=== PATIENT | male | born 1950 | race Caucasian/White ===

== ENCOUNTER 2017-06-28 04:15 | Observation (INO) ==
[2017-06-28] MEDS ORDERED: Isovue-370 500 ML INFUS..BTL IV ONE (04:37)
--- NOTE | 2017-06-28 04:37 | Emergency Department Note ---
Disposition Clinical Impression: Small bowel obstruction Disposition: Still a Patient Condition: Fair Referrals: Sheri Morales CNP [Primary Care Provider] - Forms: ED Satisfaction Letter, Work/School Release Time of Disposition: 06:49 General Adult HPI - General Chief complaint: ED Abdominal Pain Stated complaint: abd pain Nursing Notes Reviewed: Yes Vital Signs Reviewed: Yes - History of Present Illness HPI Narrative: 67-year-old male presents to the emergency department with a one-day history of lower abdominal pain. Patient states that he has had a ventral hernia repair performed by Dr. morales. He states that he has had episodes of this in the past that were similar nature. Patient does report having one episode of vomiting today. He has had normal bowel movements over the last couple days. Pain Scale: 10 - Related Data Home Medications Medication Instructions Recorded Confirmed Dicloxacillin Sodium 50 tab PO 1-3XD 04/07/15 04/07/15 Ergocalciferol (VITAMIN D2) 50,000 units PO 2XW 04/07/15 04/07/15 [Vitamin D2 (50,000 UNIT)] Metformin HCl [Glumetza] 1,000 mg PO BID 04/07/15 04/07/15 Allergies Allergy/AdvReac Type Severity Reaction Status Date / Time steriods Allergy Diarrhea Uncoded 06/28/17 04:17 All systems ED: reviewed and negative except as stated. Review of Systems: As Per HPI Constitutional: Denies: fever Cardiovascular: Denies: chest pain Respiratory: Denies: cough Gastrointestinal: Reports: abdominal pain, nausea, vomiting. Denies: diarrhea, melena, hematochezia Genitourinary: Denies: urgency, dysuria Musculoskeletal: Denies: back pain, neck pain Integumentary: Denies: rash, abrasion Neurological: Denies: headache Endocrine: Denies: fatigue Past Medical History - Past Medical History Medical history: Reports: diabetes, hyperlipidemia, hypertension Surgical history: Reports: appendectomy, other (double hernia surgery) Psychiatric history: Reports: no psych history - Social History Smoking Status: Former smoker Smokeless Tobacco Status: No Alcohol use: Reports: none Drug use: Reports: none Physical Exam - General General appearance: alert, in no apparent distress - Head Head exam: atraumatic, normocephalic - Eye Eye exam: Absent: scleral icterus - ENT ENT exam: mucous membranes moist - Neck Neck exam: Present: full ROM, trachea midline. Absent: tenderness, meningismus - Chest Chest inspection: Present: symmetric chest wall rise - Respiratory Respiratory exam: Present: normal lung sounds bilaterally. Absent: respiratory distress - Cardiovascular Cardiovascular exam: Present: regular rate, normal rhythm, normal heart sounds. Absent: JVD - Abdominal Exam Abdominal exam: Present: other (Abdomen firm, diffuse lower abdominal tenderness to palpation that is moderate in nature. There is no rebound, there is no peritoneal signs.) - Extremities Exam Extremities exam: Present: tenderness - Back Exam Back exam: Present: normal inspection - Neurological Exam Neurological exam: Present: alert, oriented X3 - Psychiatric Psychiatric exam: Present: normal affect, normal mood - Skin Skin exam: Present: warm, dry, intact Course Vital Signs Temperature 98.0 F 06/28/17 04:17 Pulse Rate 85 06/28/17 04:17 Respiratory Rate 20 06/28/17 04:17 Blood Pressure 163/107 06/28/17 04:17 O2 Sat by Pulse Oximetry 95 06/28/17 04:17 Temperature 98.0 F 06/28/17 06:09 Pulse Rate 98 06/28/17 06:11 Respiratory Rate 16 06/28/17 06:11 Blood Pressure 158/87 06/28/17 06:11 O2 Sat by Pulse Oximetry 97 06/28/17 06:11 Oxygen Delivery Oxygen Delivery Room Air Medical Decision Making - MDM Narrative Medical decision making narrative: This is a 67-year-old male past medical history of ventral hernia repair who presents to the emergency department with lower abdominal pain as well as vomiting. This time, we will obtain a CT of the abdomen and pelvis with oral and IV contrast. We will also obtain urinalysis, CBC, CMP, lipase. We will provide a liter of normal saline. We will provide analgesia as well. Patient has mild leukocytosis of 14.7. He does not have any evidence of acute renal insufficiency. CT scan of the abdomen and pelvis reveals small bowel obstruction with a transition point along the posterior surface of the anterior abdominal wall mesh. I spoke with Dr. morales, his general surgeon and he recommended medical admission with surgery consult. Patient currently feeling a lot more comfortable after administration of pain medication. We are currently awaiting the hospitalist to call back for acceptance. Patient hemodynamically stable and not in any acute distress. He will be held nothing by mouth at this time. Abdomen/Pelvis CT 06/28/17 04:37 IMPRESSION: 1. Small bowel obstruction with the transition point along the posterior surface of the anterior abdominal wall mesh. 2. Nonobstructing right renal calculi. 3. Cholelithiasis without scan evidence for acute cholecystitis. 4. Diverticulosis without scan evidence for diverticulitis. D/ / Diego Cody MD / Diego Cody MD Interpreting Provider: Diego Cody MD Chest X-Ray 06/28/17 04:38 IMPRESSION: No acute disease. D/ / Diego Cody MD / Diego Cody MD Interpreting Provider: Diego Cody MD - Lab Data Result diagrams: 06/28/17 04:38 06/28/17 04:38 Lab Results 06/28/17 06/28/17 06/28/17 Range/Units 04:38 04:38 04:55 WBC 14.7 H (4.3-11.1) K/mcL RBC 5.39 (4.19-5.50) M/mcL Hgb 16.6 (12.9-16.9) g/dL Hct 47.4 (37.5-50.1) % MCV 87.9 (83.0-100.0) fL MCH 30.8 (28.0-33.3) pg MCHC 35.0 (31.6-35.5) g/dL RDW 13.2 (11.5-14.5) % Plt Count 212 (140-400) K/mcL MPV 11.7 (9.4-12.4) fL Immature Gran % 0.5 (0-4) % Seg Neutrophils % 83.8 % Lymphocytes % 9.9 % Monocytes % 5.2 % Eosinophils % 0.3 % Basophils % 0.3 % Neutrophils # 12.3 H (1.6-8.9) K/mcL Lymphocytes # 1.5 (0.6-4.6) K/mcL Monocytes # 0.8 (0.0-1.3) K/mcL Eosinophils # 0.0 (0.0-0.6) K/mcL Basophils # 0.1 (0.0-0.2) K/mcL Sodium 144 (136-145) mEq/L Potassium 4.3 (3.5-5.1) mEq/L Chloride 106 (98-107) mEq/L Carbon Dioxide 25 (23-29) mEq/L BUN 14 (8-23) mg/dL Creatinine 0.91 (0.70-1.30) mg/dL Est GFR ( Amer) > 60 (> 60) Est GFR (Non-Af Amer) > 60 (> 60) BUN/Creatinine Ratio 15 (6-26) Glucose 198 H (70-105) mg/dL Calculated Osmolality 304 H (280-300) Calcium 10.0 (8.6-10.3) mg/dL Total Bilirubin 0.8 (0.3-1.0) mg/dL AST 19 (13-39) Units/L ALT 27 (7-52) Units/L Alkaline Phosphatase 67 (34-104) Units/L Troponin I < 0.03 (< 0.04) ng/mL Serum Total Protein 6.9 (6.4-8.9) g/dL Albumin 4.4 (3.5-5.7) g/dL Globulin 2.5 (2.4-3.5) g/dL Albumin/Globulin Ratio 1.8 (1.1-2.2) Lipase 14 (11-82) Units/L Urine Color Yellow (Yellow) Urine Clarity Clear (Clear) Urine pH 6.5 (5.0-8.0) pH Units Ur Specific [place] 1.023 (1.010-1.025) Urine Protein 30 H (Neg-Trace) mg/dL Urine Glucose (UA) 100 H (Normal) mg/dL Urine Ketones Trace H (Negative) mg/dL Urine Blood Negative (Negative) Urine Nitrite Negative (Negative) Urine Bilirubin Negative (Negative) Urine Urobilinogen Normal (Normal) mg/dL Ur Leukocyte Esterase Negative (Negative) Urine Microscopic RBC 3-5 H (0-3) per hpf Urine Microscopic WBC 0-3 (0-3) per hpf Ur Squamous Epith Cells Moderate H (None-Few) per lpf Urine Bacteria None Seen (None-Few) per hpf Hyaline Casts None Seen (None-Few) per lpf Ur Culture Indicated? NO (NO) - Radiology Data Radiology results reviewed: Yes I reviewed the patient's radiology results. - EKG Data EKG #1 EKG attestation: Yes I reviewed and interpreted this EKG. EKG results narrative: June 5:01 Ventricular rate 74 bpm, DC interval 159 ms, QRS duration 97 ms, QT 345 ms, QTC 372 ms, left axis deviation. Sinus rhythm with a ventricular rate of 74 bpm. There is no evidence of any ischemic ST changes noted on this electrocardiogram. Attestation Statement - Attestation Attestation: I examined this patient and my medical decision-making was reviewed with the Resident Physician. I agree with the documented findings, disposition and treatment plan as described except to the extent set forth below. Abdominal pain with nausea and vomiting. We will obtain CT scan with IV and by mouth contrast to rule out obstructive pathology. Disposition pending results of advanced imaging and laboratory analyses. The patient will be signed out to
[2017-06-28] MEDS ORDERED: 0.9 % Sodium Chloride 1,000 ML IVC ONE (04:39)
[2017-06-28] MEDS ORDERED: Ondansetron 4 MG/2 ML VIAL IVP ONE (04:39)
[2017-06-28] MEDS ORDERED: *HR* FentaNYL (PF) 100 MCG/2 ML VIAL IVP ONE (04:39)
[2017-06-28] MEDS ORDERED: *HR* OxyCODONE/APAP 5/325 TABLET PO ONE (04:40)
[2017-06-28 05:01] LABS: Basophils # 0.1 K/mcL (0.0-0.2); Basophils % 0.3 %; Eosinophils % 0.3 %; Hematocrit 47.4 % (37.5-50.1); Hemoglobin 16.6 g/dL (12.9-16.9); Immature Granulocytes % 0.5 % (0-4); Lymphocytes # 1.5 K/mcL (0.6-4.6); Lymphocytes % 9.9 %; Mean Corpuscular Hemoglobin 30.8 pg (28.0-33.3); Mean Corpuscular Volume 87.9 fL (83.0-100.0); Mean Platelet Volume 11.7 fL (9.4-12.4); Monocytes # 0.8 K/mcL (0.0-1.3); Monocytes % 5.2 %; Neutrophils # 12.3 K/mcL (1.6-8.9); Platelet Count 212 K/mcL (140-400); Red Blood Count 5.39 M/mcL (4.19-5.50); Red Cell Distribution Width 13.2 % (11.5-14.5); Segmented Neutrophils % 83.8 %
[2017-06-28 05:06] LABS: Bilirubin,Urine Negative (Negative); Blood,Urine Negative (Negative); Clarity,Urine Clear (Clear); Color,Urine Yellow (Yellow); Glucose,Urine (UA) 100 mg/dL (Normal); Ketones,Urine Trace mg/dL (Negative); Leukocyte Esterase,Urine Negative (Negative); Nitrite,Urine Negative (Negative); PH,Urine 6.5 pH Units (5.0-8.0); Protein,Urine 30 mg/dL (Neg-Trace); Specific Gravity,Urine 1.023 (1.010-1.025); Urobilinogen,Urine Normal (Normal)
[2017-06-28 05:08] LABS: Bacteria,Urine None Seen per hpf (None-Few); Hyaline Casts,Urine None Seen per lpf (None-Few); Squamous Epithelial Cell,Urine Moderate per lpf (None-Few); WBC,Urine 0-3 per hpf (0-3)
[2017-06-28 05:30] LABS: Troponin I < 0.03 ng/mL (< 0.04)
[2017-06-28 05:31] LABS: Alanine Aminotransferase 27 Units/L (7-52); Albumin 4.4 g/dL (3.5-5.7); Albumin/Globulin Ratio 1.8 (1.1-2.2); Alkaline Phosphatase 67 Units/L (34-104); Aspartate Amino Transferase 19 Units/L (13-39); BUN/Creatinine Ratio 15 (6-26); Bilirubin,Total 0.8 mg/dL (0.3-1.0); Blood Urea Nitrogen 14 mg/dL (8-23); Carbon Dioxide 25 mEq/L (23-29); Chloride 106 mEq/L (98-107); Globulin 2.5 g/dL (2.4-3.5); Glucose 198 mg/dL (70-105); Lipase 14 Units/L (11-82); Osmolality,Calculated 304 (280-300); Potassium 4.3 mEq/L (3.5-5.1); Sodium 144 mEq/L (136-145); Total Protein 6.9 g/dL (6.4-8.9); eGFR For African Americans > 60 (> 60); eGFR For Non-African Americans > 60 (> 60)
--- NOTE | 2017-06-28 07:36 | Emergency Department Note ---
Disposition Clinical Impression: Small bowel obstruction Disposition: Still a Patient Condition: Fair Referrals: Sheri Morales CNP [Primary Care Provider] - Forms: ED Satisfaction Letter, Work/School Release General Adult HPI - General Chief complaint: ED Abdominal Pain Stated complaint: abd pain - History of Present Illness Pain Scale: 0 - Related Data Home Medications Medication Instructions Recorded Confirmed Aspirin/Acetaminophen/Caffeine 2 tab PO DAILY PRN 06/28/17 06/28/17 [Excedrin Migraine Caplet] Ibuprofen [Motrin Ib] 400 mg PO DAILY PRN 06/28/17 06/28/17 Linagliptin [Tradjenta] 5 mg PO DAILY 06/28/17 06/28/17 Lisinopril [Zestril] 10 mg PO DAILY 06/28/17 06/28/17 Metformin HCl [Glucophage] 1,000 mg PO BID 06/28/17 06/28/17 Pravastatin Sodium [Pravachol] 40 mg PO HS 06/28/17 06/28/17 Allergies Allergy/AdvReac Type Severity Reaction Status Date / Time steriods Allergy Diarrhea Uncoded 06/28/17 04:17 Constitutional: Denies: fever Cardiovascular: Denies: chest pain Respiratory: Denies: cough Gastrointestinal: Reports: abdominal pain, nausea, vomiting. Denies: diarrhea, melena, hematochezia Genitourinary: Denies: urgency, dysuria Musculoskeletal: Denies: back pain, neck pain Integumentary: Denies: rash, abrasion Neurological: Denies: headache Endocrine: Denies: fatigue Past Medical History - Past Medical History Medical history: Reports: diabetes, hyperlipidemia, hypertension Surgical history: Reports: appendectomy, other (double hernia surgery) Psychiatric history: Reports: no psych history - Social History Smoking Status: Former smoker Smokeless Tobacco Status: No Alcohol use: Reports: none Drug use: Reports: none Physical Exam - General General appearance: alert, in no apparent distress Course Vital Signs Temperature 98.0 F 06/28/17 04:17 Pulse Rate 85 06/28/17 04:17 Respiratory Rate 20 06/28/17 04:17 Blood Pressure 163/107 06/28/17 04:17 O2 Sat by Pulse Oximetry 95 06/28/17 04:17 Temperature 98.0 F 06/28/17 06:09 Pulse Rate 75 06/28/17 07:02 Respiratory Rate 16 06/28/17 07:02 Blood Pressure 141/98 06/28/17 07:02 O2 Sat by Pulse Oximetry 96 06/28/17 07:02 Oxygen Delivery Oxygen Delivery Room Air Medical Decision Making - Lab Data Result diagrams: 06/28/17 04:38 06/28/17 04:38 Lab Results 06/28/17 06/28/17 06/28/17 Range/Units 04:38 04:38 04:55 WBC 14.7 H (4.3-11.1) K/mcL RBC 5.39 (4.19-5.50) M/mcL Hgb 16.6 (12.9-16.9) g/dL Hct 47.4 (37.5-50.1) % MCV 87.9 (83.0-100.0) fL MCH 30.8 (28.0-33.3) pg MCHC 35.0 (31.6-35.5) g/dL RDW 13.2 (11.5-14.5) % Plt Count 212 (140-400) K/mcL MPV 11.7 (9.4-12.4) fL Immature Gran % 0.5 (0-4) % Seg Neutrophils % 83.8 % Lymphocytes % 9.9 % Monocytes % 5.2 % Eosinophils % 0.3 % Basophils % 0.3 % Neutrophils # 12.3 H (1.6-8.9) K/mcL Lymphocytes # 1.5 (0.6-4.6) K/mcL Monocytes # 0.8 (0.0-1.3) K/mcL Eosinophils # 0.0 (0.0-0.6) K/mcL Basophils # 0.1 (0.0-0.2) K/mcL Sodium 144 (136-145) mEq/L Potassium 4.3 (3.5-5.1) mEq/L Chloride 106 (98-107) mEq/L Carbon Dioxide 25 (23-29) mEq/L BUN 14 (8-23) mg/dL Creatinine 0.91 (0.70-1.30) mg/dL Est GFR ( Amer) > 60 (> 60) Est GFR (Non-Af Amer) > 60 (> 60) BUN/Creatinine Ratio 15 (6-26) Glucose 198 H (70-105) mg/dL Calculated Osmolality 304 H (280-300) Calcium 10.0 (8.6-10.3) mg/dL Total Bilirubin 0.8 (0.3-1.0) mg/dL AST 19 (13-39) Units/L ALT 27 (7-52) Units/L Alkaline Phosphatase 67 (34-104) Units/L Troponin I < 0.03 (< 0.04) ng/mL Serum Total Protein 6.9 (6.4-8.9) g/dL Albumin 4.4 (3.5-5.7) g/dL Globulin 2.5 (2.4-3.5) g/dL Albumin/Globulin Ratio 1.8 (1.1-2.2) Lipase 14 (11-82) Units/L Urine Color Yellow (Yellow) Urine Clarity Clear (Clear) Urine pH 6.5 (5.0-8.0) pH Units Ur Specific [place] 1.023 (1.010-1.025) Urine Protein 30 H (Neg-Trace) mg/dL Urine Glucose (UA) 100 H (Normal) mg/dL Urine Ketones Trace H (Negative) mg/dL Urine Blood Negative (Negative) Urine Nitrite Negative (Negative) Urine Bilirubin Negative (Negative) Urine Urobilinogen Normal (Normal) mg/dL Ur Leukocyte Esterase Negative (Negative) Urine Microscopic RBC 3-5 H (0-3) per hpf Urine Microscopic WBC 0-3 (0-3) per hpf Ur Squamous Epith Cells Moderate H (None-Few) per lpf Urine Bacteria None Seen (None-Few) per hpf Hyaline Casts None Seen (None-Few) per lpf Ur Culture Indicated? NO (NO) Attestation Statement - Attestation Attestation: Care assumed from Dr. Burrows at 7 AM pending planned admission to the medicine service. Patient presented with abdominal pain was identified to have a small bowel structuring. Surgical consultation was processed. The patient is sleeping at the time of my exam. The hospitalist service accepts admission
--- NOTE | 2017-06-28 08:55 | Electrocardiograph Report ---
[facility] Test Date: 2017-06-28 Pat Name: Ceferino Kylie Department: 103 Room: Gender: M Personnel And Payroll Technician: PENNIE : 1950 Requested By: Lewis Enriquez Order Number: [id number] Reading MD: Ceferino Montoya Measurements Intervals [place] Rate: 74 P: 34 MO: 159 QRS: 12 QRSD: 97 T: 72 QT: 345 QTc: 372 Interpretive Statements SINUS RHYTHM Electronically Signed On 06-28-2017 8:54:22 EDT by Ceferino Montoya
[2017-06-28] MEDS ORDERED: Naloxone 0.4 MG/ML INJ IVP PRN (10:42)
[2017-06-28] MEDS ORDERED: Ondansetron 4 MG/2 ML VIAL IVP PRN (10:44)
[2017-06-28] MEDS ORDERED: 0.9 % Sodium Chloride 1,000 ML IVC SCH ×2 (10:45→11:30)
[2017-06-28] MEDS ORDERED: *HR* Dextrose 50 % in Water (Syg) 50 ML SYRINGE IVP PRN (10:46)
[2017-06-28] MEDS ORDERED: Dextrose Gel 15 GM/37.5 ML TUBE PO PRN ×2 (10:46)
[2017-06-28] MEDS ORDERED: D5% in Water 1,000 ML IVC PRN (10:46)
--- NOTE | 2017-06-28 10:49 | Internal Med History&Physical ---
Date of Encounter: 06/28/17 Time of Encounter: 10:47 Internal Medicine - H&P: HPI Admitted From: Home Plans for Post Hospital Care: Home History of present illness: Mr. Espinal is a 67 year old male with history of diabetes mellitus, hypertension, hyperlipidemia, ventral hernia repair performed by Dr. Maravilla almost 5 years ago presented to ER with complaint of sudden onset of abdominal pain around 8 PM last night associated with nausea and also had one time vomiting. In ER CT abdomen suggestive of a small bowel obstruction. ER physician consulted surgeon Dr. Maravilla. ER physician also called on-call hospitalists for the admission. Patient denies fever, chills, cough, headache, dizziness, chest pain, shortness of breath, diarrhea, urinary complaint. He had decreased flatus but past bowel movement in the midnight 1 and also has nausea but no vomiting after coming to ER. Past Med Surg Social Fam HX - Past Medical History Medical history: diabetes, hyperlipidemia, hypertension Psychiatric history: no psych history - Past Surgical History Surgical History: appendectomy, other (double hernia surgery) - Social History Smoking Status: Former smoker Smokeless Tobacco Status: No Alcohol use: none Drug use: none Internal Medicine - H&P: Meds Aspirin/Acetaminophen/Caffeine [Excedrin Migraine Caplet] 2 tab PO DAILY PRN [History] Ibuprofen [Motrin Ib] 400 mg PO DAILY PRN 06/28/17 [History] Linagliptin [Tradjenta] 5 mg PO DAILY 06/28/17 [History] Lisinopril [Zestril] 10 mg PO DAILY 06/28/17 [History] Metformin HCl [Glucophage] 1,000 mg PO BID 06/28/17 [History] Pravastatin Sodium [Pravachol] 40 mg PO HS 06/28/17 [History] 3 Allergy/AdvReac Type Severity Reaction Status Date / Time steriods Allergy Diarrhea Uncoded 06/28/17 04:17 All Systems PM: as documented above in the HPI. - Constitutional Vitals: Temp Pulse Resp BP Pulse Ox 98.0 F 69 16 141/98 95 06/28/17 06:09 06/28/17 07:45 06/28/17 07:45 06/28/17 07:02 06/28/17 07:45 Exam: General appearance: No acute distress, A&O X 3. at bedside Head exam: Atraumatic Eye exam: EOMI, PERRLA ENT exam: Moist oral mucosa Neck nontender, supple Respiratory exam: Clear to auscultation bilaterally Cardiovascular exam: Regular rate and rhythm, no systolic murmur Abdominal exam: Soft, tender in lower abdomen, nondistended, positive bowel sounds, no rebound tenderness, no rigidity Extremities exam: No calf tenderness, no pedal edema Present: Skin-no rash, warm, dry, intact Neurological exam: Alert, awake, oriented 3, CN II-XII intact, no focal deficits. No facial droop. Normal speech. Normal gait. Internal Med - H&P Results - Labs CBC & Chem 7: 06/28/17 04:38 06/28/17 04:38 Labs: Short CBC 06/28/17 Range/Units 04:38 WBC 14.7 H (4.3-11.1) K/mcL Hgb 16.6 (12.9-16.9) g/dL Hct 47.4 (37.5-50.1) % Plt Count 212 (140-400) K/mcL Neutrophils # 12.3 H (1.6-8.9) K/mcL BMP 06/28/17 04:38 Sodium 144 Potassium 4.3 Chloride 106 Carbon Dioxide 25 BUN 14 Creatinine 0.91 Glucose 198 H Calcium 10.0 Cardiac Enzymes 06/28/17 Range/Units 04:38 Troponin I < 0.03 (< 0.04) ng/mL Liver Function 06/28/17 Range/Units 04:38 Total Bilirubin 0.8 (0.3-1.0) mg/dL AST 19 (13-39) Units/L ALT 27 (7-52) Units/L Alkaline Phosphatase 67 (34-104) Units/L Albumin 4.4 (3.5-5.7) g/dL Urine 06/28/17 Range/Units 04:55 Urine Color Yellow (Yellow) Urine Clarity Clear (Clear) Urine pH 6.5 (5.0-8.0) pH Units Ur Specific [place] 1.023 (1.010-1.025) Urine Protein 30 H (Neg-Trace) mg/dL Urine Glucose (UA) 100 H (Normal) mg/dL - Impressions ITS Impressions Abdomen/Pelvis CT 06/28/17 04:37 IMPRESSION: 1. Small bowel obstruction with the transition point along the posterior surface of the anterior abdominal wall mesh. 2. Nonobstructing right renal calculi. 3. Cholelithiasis without scan evidence for acute cholecystitis. 4. Diverticulosis without scan evidence for diverticulitis. D/ / Diego Cody MD / Diego Cody MD Interpreting Provider: Diego Cody MD Chest X-Ray 06/28/17 04:38 IMPRESSION: No acute disease. D/ / Diego Cody MD / Diego Cody MD Interpreting Provider: Diego Cody MD - Assessment and plan (1) Small bowel obstruction, partial Current Visit: Yes Status: Acute Assessment and plan: History of ventral hernia repair in the past. History of a small bowel obstruction in the past as well. CT abdomen done with suggestive above finding. Continue supportive treatment keeping nothing by mouth, IV fluid, pain management, antiemetic. General surgeon was already consulted by ER physician (2) Leukocytosis, unspecified Current Visit: Yes Status: Acute Assessment and plan: Patient does not appear in sepsis. Abdomen pain is also better. No other source of infection. Could be reactive response. Will monitor the patient. Will consider antibiotic if needed. Qualifiers: Leukocytosis type: unspecified Qualified Code(s): D72.829 - Elevated white blood cell count, unspecified (3) Diabetes mellitus Current Visit: Yes Status: Chronic Assessment and plan: Accu-Chek, SSI coverage. Hold OHA Qualifiers: Diabetes mellitus type: type 2 Diabetes mellitus half-way insulin use: without half-way use Diabetes mellitus complication status: without complication Qualified Code(s): E11.9 - Type 2 diabetes mellitus without complications (4) Hypertension Current Visit: Yes Status: Chronic Assessment and plan: Close monitoring. Patient is nothing by mouth therefore lisinopril on hold. Hydralazine as needed. Qualifiers: Hypertension type: essential hypertension Qualified Code(s): I10 - Essential (primary) hypertension (5) DVT prophylaxis Current Visit: Yes Status: Acute Assessment and plan: SCDs - Time Spent With Patient Total time spent is greater than 50% in coordination of care (as documented) at patient's floor/unit and/or counseling patient: 25 - 35 minutes
[2017-06-28 11:29] VITALS: BP 153/94
[2017-06-28] MEDS ORDERED: Insulin LISPRO 300 UNITS/3 ML VIAL SQ SCH (12:00)
--- NOTE | 2017-06-28 13:49 | General Surgery Consult Note ---
Date of Encounter: 06/28/17 Time of Encounter: 13:00 History of Present Illness Consult date: 06/28/17 Reason for consult: abdominal pain Requesting physician: Lewis Enriquez History of present illness: 67-year-old male referred to surgical services for further evaluation and possible treatment new-onset abdominal pain, nausea, and a single episode of emesis. Patient indicates symptoms began approximately 10 AM yesterday morning and progressed in severity. He describes predominantly upper abdominal pain. CT abdomen/pelvis demonstrated bibasilar atelectasis; cholelithiasis without wall thickening or pericholecystic fluid; distended stomach and mild dilatation of the central small bowel. A transition point at along the posterior surface of a mesh hernia repair of the anterior abdominal wall was also described. Diverticulosis throughout the colon without evidence of diverticulitis. Slightly dilated central loops of small bowel prompted some concern for early small bowel obstruction. Past medical history: Diabetes mellitus, hypertension, hyperlipidemia, truncal obesity Surgical history: Appendectomy, "double" hernia surgery; periumbilical hernia repair with mesh approximately 5 years ago Allergies: Steroids which are described to cause diarrhea Medications: Aspirin/acetaminophen/caffeine (Excedrin migraine caplet) 2 tabs by mouth as needed Ibuprofen 400 mg by mouth as needed for pain Linagliptin 5 mg by mouth daily Lisinopril 20 mg by mouth daily Metformin 1000 mg by mouth twice a day Pravastatin 40 mg by mouth daily at bedtime Social history: Former smoker; he does not consume alcohol or use illicit drugs. He is and lives at home with his spouse Physical examination: The patient was resting comfortably in his hospital bed. He was in no acute distress. The patient was afebrile, 98.5; pulse 70, respirations 16-19, blood pressure 153/94. SPO2 on room air 99% He is 1.8 m tall, 106.594 kg, BMI 32.8 Skin: Warm, without obvious jaundice Lungs: Clear, no obvious abdominal pain and deep inspiration Cardiac: Regular rate, no appreciable murmurs Abdomen: Protuberant but nontender. Active bowel sounds. I did not elicit any upper or lower abdominal pain. The patient did describe some crampy abdominal pain in the supraumbilical area but there were no discernible masses. CT abdomen/pelvis was reviewed with [facility] - the findings are summarized above Labs: White count 14.7; hemoglobin 16.6, hematocrit 47.4. Platelet count 212, 000. Neutrophils 12.3% Electrolytes, BUN, creatinine within normal limits; blood sugar 198 Impression: 67-year-old male referred for surgical evaluation of new onset abdominal pain , nausea and single episode of emesis. CT findings include cholelithiasis without wall thickening or pericholecystic fluid. This may be the patient's etiology for recurring upper abdominal "pressure". CT also notable for mild dilatation central small bowel. Adhesions in the area of a previous mesh repair of the anterior abdominal wall (periumbilical) potentially contributing to the patient's symptoms and radiologic findings. No clear-cut obstruction was identified. Mild dehydration - elevated H&H (hemoconcentration) At the time of my examination, the patient was feeling much improved. His abdominal pain had diminished considerably. There was no further N/V The clinical and radiologic findings were discussed in detail with the patient. The patient's was at bedside as well. Treatment options include overnight observation in the hospital versus discharge home, clear liquids for 24 hours and follow-up in my office tomorrow. The patient indicates his desire to be discharged home. His was in agreement. The patient is aware that his symptoms may continue to resolve or recurrent become much worse. If discharged home that would necessitate a return to the hospital. The patient is expressed understanding and continued to express their desire to be discharged home. This was discussed with Maribell Soliman Hospitalist. It was deemed reasonable for patient to be discharged home with outpatient follow up. Instructions: Clear liquids for the next 24 hours Patient to continue his routine home meds without interruption Patient contact office in a.m. to make follow-up appointment in the afternoon. Past Med Surg Social Fam HX - Past Medical History Medical history: diabetes, hyperlipidemia, hypertension Psychiatric history: no psych history - Past Surgical History Surgical History: appendectomy, herniorrhaphy, tonsilectomy, other - Social History Smoking Status: Former smoker Smokeless Tobacco Status: No Alcohol use: none Drug use: none - Family History Father Hx Family Cardiac Disorders: Yes Grandfather Hx Family Cardiac Disorders: Yes Brother Hx Family Neuromuscular Disorders: Yes (CVA) Medications and Allergies Aspirin/Acetaminophen/Caffeine [Excedrin Migraine Caplet] 2 tab PO DAILY PRN [History] Ibuprofen [Motrin Ib] 400 mg PO DAILY PRN 06/28/17 [History] Linagliptin [Tradjenta] 5 mg PO DAILY 06/28/17 [History] Lisinopril [Zestril] 10 mg PO DAILY 06/28/17 [History] Metformin HCl [Glucophage] 1,000 mg PO BID 06/28/17 [History] Pravastatin Sodium [Pravachol] 40 mg PO HS 06/28/17 [History] 3 Allergy/AdvReac Type Severity Reaction Status Date / Time steriods Allergy Diarrhea Uncoded 06/28/17 04:17 Review of Systems All systems PM: The remainder of the systems were reviewed and are negative General Surgery Exam Initial Vital Signs Temp Pulse Resp BP Pulse Ox 98.0 F 85 20 163/107 95 06/28/17 04:17 06/28/17 04:17 06/28/17 04:17 06/28/17 04:17 06/28/17 04:17 Exam Initial Vital Signs Temp Pulse Resp BP Pulse Ox 98.0 F 85 20 163/107 95 06/28/17 04:17 06/28/17 04:17 06/28/17 04:17 06/28/17 04:17 06/28/17 04:17 Results - Labs 06/28/17 04:38 06/28/17 04:38 Abnormal lab results WBC 14.7 K/mcL (4.3-11.1) H 06/28/17 04:38 Neutrophils # 12.3 K/mcL (1.6-8.9) H 06/28/17 04:38 Glucose 198 mg/dL (70-105) H 06/28/17 04:38 POC Glucose 128 mg/dL (70-99) H 06/28/17 11:16 Calculated Osmolality 304 (280-300) H 06/28/17 04:38 Urine Protein 30 mg/dL (Neg-Trace) H 06/28/17 04:55 Urine Glucose (UA) 100 mg/dL (Normal) H 06/28/17 04:55 Urine Ketones Trace mg/dL (Negative) H 06/28/17 04:55 Urine Microscopic RBC 3-5 per hpf (0-3) H 06/28/17 04:55 Ur Squamous Epith Cells Moderate per lpf (None-Few) H 06/28/17 04:55 All other labs normal. Consult Discharge Plan - Plan Referrals: Sheri Morales, HALLIE [Primary Care Provider] -
== END 2017-06-28 14:13 | disposition home or self-care (01) ==
LOC: EMEROO 04:15 → 2SOUTHHOLD 04:15
PROVIDERS: ADMIT General Practice; ATTEND General Practice

== ENCOUNTER 2017-07-19 06:58 | Inpatient (IN) ==
--- NOTE | 2017-07-19 07:45 | History & Physical Report ---
Date of Encounter: 07/19/17 Time of Encounter: 07:44 24 Hour HP Update - Instructions Instructions: If the History and Physical is less than 30 days old and was completed prior to A.M. admission and or procedure and has NOT been updated on calendar day of procedure please complete this update prior to performing procedure. - Update Patient reports changes in Medical Condition: No Changes in examination, assessment, or condition: No Changes in Medication: No Preop tests/diagnostics Reviewed: Yes Surgery Remains Indicated: Yes Consent for Planned Operative Procedure(s) Verified: Yes - Pre-Operative Checklist Preoperative Checklist Indicated: Yes Prophylactic Antibiotic Ordered: Yes Home Medications Include Beta Simone: No Beta Simone Taken Today (Day of Surgery): No Beta Simone Taken Yesterday (Day Prior to Surgery): No Is VTE Prophylaxis Indicated?: Yes
[2017-07-19] MEDS ORDERED: Ringers Solution, Lactated 1,000 ML IVC SCH ×2 (08:00→13:18)
[2017-07-19] MEDS ORDERED: CeFAZolin Syr 2,000MG/20 ML 2,000 MG/20 ML SYRINGE IVPB ONE (08:01)
[2017-07-19] MEDS ORDERED: Ondansetron 4 MG/2 ML VIAL ONE (08:08)
[2017-07-19] MEDS ORDERED: *HR* Rocuronium Bromide 50 MG/5 ML VIAL ONE (08:08)
[2017-07-19] MEDS ORDERED: Dexamethasone 4 MG/ML VIAL ONE (08:08)
[2017-07-19] MEDS ORDERED: Lidocaine -MPF 2% 2 ML VIAL ONE (08:08)
--- NOTE | 2017-07-19 08:08 | Anesthesia Evaluation PreOp ---
Date of Encounter: 07/19/17 Time of Encounter: 08:06 - Past History Planned Operation: Lap cholecystectomy Cardiac History: HTN, Hyperlipidemia POWDERMAN History: Denies Any Significant HX Other Medical History: Renal (kidney stones), Diabetes Type II Anesthesia History: No Prior Anesthetic Complications, Past Anesthesia ( appendectomy, hernia repair with mesh, tonsillectomy) Alcohol Use: none Drug use: none Medications and Allergies Linagliptin [Tradjenta] 5 mg PO DAILY 06/28/17 [History] Lisinopril [Zestril] 10 mg PO DAILY 06/28/17 [History] Metformin HCl [Glucophage] 1,000 mg PO BID 06/28/17 [History] Pravastatin Sodium [Pravachol] 40 mg PO HS 06/28/17 [History] 3 Allergy/AdvReac Type Severity Reaction Status Date / Time steriods AdvReac Diarrhea Uncoded 07/19/17 08:01 - Meds/Allergy Pre-op Review Medications Reviewed: Yes Allergies Reviewed: Yes Beta Blockers on Current Med List: No Anesthesia Results - Labs Laboratory Tests 06/28/17 06/28/17 06/28/17 04:38 04:38 11:16 WBC 14.7 H Hgb 16.6 Hct 47.4 Plt Count 212 Sodium 144 Potassium 4.3 Chloride 106 Carbon Dioxide 25 BUN 14 Creatinine 0.91 Glucose 198 H POC Glucose 128 H - Imaging EKG: report reviewed (SINUS RHYTHM Electronically Signed On 06-28-2017 8:54:22 EDT by Ceferino Montoya) Anesthesia Exam Blood glucose: 122 - HEENT Pupil (Motor): Pupils equal, EOMI Mallampati: III Teeth: Edentulous Oral Opening: Greater than 3 - POWDERMAN LOC: Oriented POWDERMAN Motor: Normal RUE, Normal LUE, Normal RLE, Normal LLE, Normal Face POWDERMAN Sensory: Normal: RUE, LUE, RLE, LLE, Face - Cardiac Rhythm: Regular - Pulmonary Breath Sounds: bilateral Clear Respiratory Effort: Symmetrical Anesthesia Assess/Plan ASA Score: 2 Modified [place] Scale for Level of Consciousness: Cooperative, oriented, and tranquil Anesthetic Plan: General Monitoring Plan: Standard Monitors Recovery Plan: PACU
[2017-07-19] MEDS ORDERED: *HR* Propofol 200 MG/20 ML VIAL IVP ONE (08:10)
[2017-07-19] MEDS ORDERED: *HR* FentaNYL (PF) 100 MCG/2 ML VIAL ONE (08:10)
[2017-07-19] MEDS ORDERED: *HR* Midazolam HCl 2 MG/2 ML VIAL ONE (08:10)
[2017-07-19] MEDS ORDERED: Acetaminophen IV 1,000 MG/100 ML INFUS..BTL ONE (08:13)
[2017-07-19] MEDS ORDERED: *HR* Succinylcholine 200 MG/10 ML VIAL IVP ONE (08:14)
[2017-07-19] MEDS ORDERED: Lidocaine -MPF 4% 5 ML AMPUL ONE (08:14)
[2017-07-19] MEDS ORDERED: *HR* Morphine 2 MG/ML SYRINGE IVP PRN (08:17)
[2017-07-19] MEDS ORDERED: *HR* Labetalol 20 MG/4 ML SYRINGE IVP PRN (08:17)
[2017-07-19] MEDS ORDERED: Ondansetron 4 MG/2 ML VIAL IVP ONE (08:17)
[2017-07-19] MEDS ORDERED: Dexamethasone 4 MG/ML VIAL IVP ONE (08:17)
[2017-07-19] MEDS ORDERED: *HR* Promethazine 25 MG/ML VIAL IVP PRN (08:17)
[2017-07-19] MEDS ORDERED: Bupivacaine/EPI 1:200k 0.25%PF 30 ML VIAL ONE (09:05)
[2017-07-19] MEDS ORDERED: Isovue-300 50 ML VIAL IVP ONE (09:05)
[2017-07-19] MEDS ORDERED: Ketorolac 30 MG/ML VIAL ONE (09:07)
[2017-07-19] MEDS ORDERED: Neostigmine Methylsulfate 3 MG/3 ML SYRINGE ONE (09:07)
[2017-07-19] MEDS ORDERED: *HR* Morphine 10 MG/ML VIAL ONE (11:23)
--- NOTE | 2017-07-19 11:42 | Operative Note ---
Date of procedure: 07/19/17 Pre-op diagnosis: cholelithiasis, biliary colic Post-op diagnosis: other (Cholelithiasis, biliary colic; small bowel adherent to mesh prosthesis) Procedure: Laparoscopic cholecystectomy, attempted intraoperative cholangiogram; lysis of adhesions; open exploratory celiotomy with small bowel resection Complications: Enterotomy necessitating small bowel resection Anesthesia: GETA Local Anesthetics: 0.25% Sensorcaine HCL with Epinephrine 1:200,000 SubQ (cc) ( 30 mL) Surgeon: Davion Betancur Was there an assistant store manager trainee present: No Estimated blood loss (cc): 25 IV fluids (cc): 1,400 Specimen: gallbladder, portion small bowel Condition: stable Disposition: PACU Procedure in Detail: The patient was brought to the operating room where he was placed supine on the procedure table. The patient was appropriately identified as to person and procedure. The accuracy of this information was confirmed by the patient and procedure team. The patient was intubated and anesthetized under the supervision of Dr. Tiffani Tian. The abdomen was prepped and draped in usual sterile fashion. Due to previous periumbilical hernia repair, laparoscopic approach was initiated right upper quadrant midclavicular line, caudal to the costal margin. Several milliliters of 0.25% bupivacaine with 1-200,000 epinephrine was infiltrated into this site. A small transverse incision was made. The abdominal wall was grasped and elevated. A 5 mm Xcel port was established. The rigid laparoscope was placed within the obturator to visualize passage through the layers to the anterior abdominal wall. When the abdominal cavity was accessed, the obturator was replaced by the rigid laparoscope, the abdomen was insufflated with gaseous carbon dioxide. There was no obvious visible injury from establishing the port. In the area of the umbilicus, there were several loops of small bowel adherent to the anterior abdominal wall and the mesh prosthesis used to repair a previous periumbilical hernia. The patient had been admitted once previously for small bowel obstruction and I suspect it was these adherent loops that caused those symptoms. Under direct visualization a supraumbilical port was established. Once this was accomplished, the rigid laparoscope shifted to dislocation of visualize placement of the remaining ports. Each of the port sites was infiltrated with the bupivacaine with epinephrine solution. There were adhesions of omentum to the liver that required dissection using Ethicon harmonic hira to facilitate exposure of the gallbladder. The gallbladder was tensely distended. It was necessary to aspirate approximately 60 mL of a clear dee bile to allow the gallbladder to be grasped and retracted. The hepatoduodenal ligament was dissected. The cystic duct was identified, skeletonized, and clipped near the infundibulum of the gallbladder. Via a separate percutaneous insertion site, a Taut cholangiogram catheter was introduced. The cystic duct was incised but was too small to allow insertion of the cholangiogram catheter. Efforts to obtain an intraoperative cholangiogram were abandoned. The cystic duct was doubly clipped and divided. The cystic artery was identified, clipped and divided. (2 clips proximally, 1 clip distal). The gallbladder was dissected from the liver bed using the Ethicon harmonic hira. Once from the liver bed, the gallbladder was placed in an endoscopic pouch and extracted through the supraumbilical port. The gallbladder was retrieved and sent to pathology. Using the laparoscopic ports, the adherent small bowel was dissected from the mesh prosthesis. The adhesions were very dense. During the mobilization of these loops of bowel, it became apparent that an enterotomy had occurred. At this point I abandoned the laparoscopic procedure. Several milliliters of 0.25% bupivacaine with 1-200,000 units epinephrine was infiltrated in the midline. The midline incision was extended from the umbilicus through the supraumbilical port. The fascia was divided in the midline. Bleeding points were controlled with electrocautery. The abdomen was entered atraumatically. The mesh prosthesis used to repair the periumbilical hernia was dissected from the surrounding anterior abdominal wall and adherent intra-abdominal contents and removed. The perforated small bowel was exteriorized. The remainder of the bowel was intact. A side to side, functional end and stapled anastomosis was created with an Ethicon 75 mm linear stapler. The open ends of the small bowel were transected using an Ethicon TX 60 millimeters stapler with the open ends transected using Lipscomb scissors. The anastomosis appeared to be intact. bBeeding from the staple line was controlled with interrupted 3-0 silk. The bowel was allowed to return to its usual anatomic location. The fascial defect was closed with interrupted [id number] 0 Vicryl. The skin edges were approximated with opal. The port sites along the right costal margin were closed with subcuticular 4-0 Vicryl. A dry sterile dressing was applied to the midline incision. The patient was taken to recovery in stable condition. Needle, sponge, and instrument counts were correct at the close of the case. Specimens submitted to pathology included the gallbladder, and the resected segment of small bowel. Total volume of 0.25% bupivacaine with 1-200,000 units epinephrine, 30 mL.
--- NOTE | 2017-07-19 12:20 | Anesthesia Evaluation Post Op ---
Date of Encounter: 07/19/17 Time of Encounter: 12:16 - Vital Signs Vital Signs: vss, recently tx with hydralazine. - Lungs Lungs: Clear Ascult./Percussion - Airway Airway: Non-obstructed - Mental Status Mental Status: Asleep with brisk response to light stimulation - Pain Pain Scale used: Luiza (Faces) - Nausea Vomiting Nausea Vomiting: Not Present - Hydration Hydration: Ice chips - Discharge PostOp Status: Transfer Patient to floor
[2017-07-19] MEDS ORDERED: Dextrose Gel 15 GM/37.5 ML TUBE PO PRN (13:18)
[2017-07-19] MEDS ORDERED: *HR* Dextrose 50 % in Water (Syg) 50 ML SYRINGE IVP PRN (13:18)
[2017-07-19] MEDS ORDERED: Ringers Solution, Lactated 500 ML IVC ONE (13:18)
[2017-07-19] MEDS ORDERED: D5% in Water 1,000 ML IVC PRN (13:18)
[2017-07-19] MEDS: *HR* OxyCODONE/APAP 5/325 TABLET PO PRN ×2 (13:32→18:14)
[2017-07-19] MEDS: Insulin LISPRO 300 UNITS/3 ML VIAL SQ SCH ×2 (18:10→20:59)
[2017-07-19] MEDS: *HR* Metformin 500 MG TABLET PO SCH (18:14)
[2017-07-19] MEDS: Acetaminophen 325 MG TABLET PO PRN (20:58)
[2017-07-20] MEDS: *HR* OxyCODONE/APAP 5/325 TABLET PO PRN ×4 (00:15→20:53)
[2017-07-20] MEDS: Insulin LISPRO 300 UNITS/3 ML VIAL SQ SCH ×2 (00:16→04:10)
[2017-07-20] MEDS ORDERED: Topiramate 25 MG TABLET PO ONE (02:03)
[2017-07-20 06:42] LABS: Basophils % 0.2 %; Eosinophils % 0.1 %; Hematocrit 43.1 % (37.5-50.1); Hemoglobin 14.6 g/dL (12.9-16.9); Immature Granulocytes % 0.3 % (0-4); Lymphocytes % 15.7 %; Mean Corpuscular HGB Conc 33.9 g/dL (31.6-35.5); Mean Corpuscular Hemoglobin 29.7 pg (28.0-33.3); Mean Corpuscular Volume 87.6 fL (83.0-100.0); Mean Platelet Volume 11.6 fL (9.4-12.4); Neutrophils # 9.4 K/mcL (1.6-8.9); Platelet Count 191 K/mcL (140-400); Red Blood Count 4.92 M/mcL (4.19-5.50); Red Cell Distribution Width 12.8 % (11.5-14.5); Segmented Neutrophils % 75.7 %
[2017-07-20 07:04] LABS: BUN/Creatinine Ratio 18 (6-26); Blood Urea Nitrogen 16 mg/dL (8-23); Calcium 8.9 mg/dL (8.6-10.3); Carbon Dioxide 24 mEq/L (23-29); Chloride 103 mEq/L (98-107); Glucose 172 mg/dL (70-105); Osmolality,Calculated 289 (280-300); Potassium 4.1 mEq/L (3.5-5.1); Sodium 137 mEq/L (136-145); eGFR For African Americans > 60 (> 60); eGFR For Non-African Americans > 60 (> 60)
[2017-07-20] MEDS: *HR* Metformin 500 MG TABLET PO SCH ×2 (08:35→17:52)
[2017-07-20] MEDS: Lisinopril 20 MG TABLET PO SCH (08:35)
[2017-07-20] MEDS ORDERED: (Linagliptin [Tradjenta] 5 MG) PO SCH (09:00)
[2017-07-20] MEDS ORDERED: Ringers Solution, Lactated 1,000 ML IVC SCH (15:00)
--- NOTE | 2017-07-20 18:53 | General Surgery Progress Note ---
Date of Encounter: 07/20/17 Time of Encounter: 13:15 Subjective Patient reports: feels better, still having pain Narrative: General Surgery - POD #1 - this is a delayed dictation Patient was resting comfortably; prior complaints of right shoulder pain and right upper quadrant abdominal pain have diminished. The patient's primary complaint through the night was that of a headache which was only partially controlled with Tylenol, Percocet, and Topamax. The patient has remained afebrile, 98.3, pulse 69, respirations 16, blood pressure 150/75. SPO2 on 4 L nasal cannula 97%, previously on 2 L per nasal cannula 94-98%. Lungs: Diminished basilar breath sounds on the right; left and anterior lungs dudley clear. No obvious abdominal pain on deep inspiration Cardiac: Regular rate, no appreciable murmurs Abdomen: Soft with mac-incisional tenderness as expected. The port sites are intact. The suprapubic midline incision is also intact. Minimal sanguinous drainage on the dressing. The dressing was removed. Bowel sounds were active and the patient has passed flatus. Laboratories: White count 12.4, hemoglobin 14.6, hematocrit 43.1; neutrophils 9.4. The leukocytosis and neutrophilia likely response to surgery. Electrolytes, BUN, creatinine have remained within normal limits. Operative pathology pending Impression: Postoperative day 1, status post laparoscopic cholecystectomy with lysis of adhesions requiring open enterotomy to repair perforated small bowel. The patient appears to be doing well. Acceptable postoperative status Plan: Allow clear liquids and if tolerated advance diet in a.m. Repeat CBC in a.m. Objective Vital Signs - Last 8 Hours Temp Pulse Resp BP Pulse Ox 07/20/17 15:05 99.1 F 62 16 161/81 90 Intake and Output 07/20/17 07/20/17 07/20/17 07:59 15:59 23:59 Intake Total 30 / 30 Output Total 1200 / 1200 1400 / 1400 Balance -1170 / -1170 -1400 / -1400 Intake: Oral 30 / 30 Output: Stool 0 / 0 Other 0 / 0 Catheter 1200 / 1200 1400 / 1400 Other: Weight 107.3 kg Blood Glucose* 154 117 124 Patient Weight 07/20/17 23:59 Weight 107.3 kg - Labs 07/20/17 06:10 07/20/17 06:10 Diabetes panel 07/20/17 Range/Units 06:10 Sodium 137 (136-145) mEq/L Potassium 4.1 (3.5-5.1) mEq/L Chloride 103 (98-107) mEq/L Carbon Dioxide 24 (23-29) mEq/L BUN 16 (8-23) mg/dL Creatinine 0.87 (0.70-1.30) mg/dL Glucose 172 H (70-105) mg/dL Calcium 8.9 (8.6-10.3) mg/dL Calcium panel 07/20/17 Range/Units 06:10 Calcium 8.9 (8.6-10.3) mg/dL Pituitary panel 07/20/17 Range/Units 06:10 Sodium 137 (136-145) mEq/L Potassium 4.1 (3.5-5.1) mEq/L Chloride 103 (98-107) mEq/L Carbon Dioxide 24 (23-29) mEq/L BUN 16 (8-23) mg/dL Creatinine 0.87 (0.70-1.30) mg/dL Glucose 172 H (70-105) mg/dL Calcium 8.9 (8.6-10.3) mg/dL Adrenal panel 07/20/17 Range/Units 06:10 Sodium 137 (136-145) mEq/L Potassium 4.1 (3.5-5.1) mEq/L Chloride 103 (98-107) mEq/L Carbon Dioxide 24 (23-29) mEq/L BUN 16 (8-23) mg/dL Creatinine 0.87 (0.70-1.30) mg/dL Glucose 172 H (70-105) mg/dL Calcium 8.9 (8.6-10.3) mg/dL - VTE Documentation of Mechanical Device: Intermittent pneumatic compression device Consult Discharge Plan - Plan Referrals: Davion Betancur MD [Non-Partnered Physician] -
[2017-07-20] MEDS: Acetaminophen 325 MG TABLET PO PRN (23:12)
[2017-07-21] MEDS: *HR* OxyCODONE/APAP 5/325 TABLET PO PRN ×3 (03:09→16:59)
[2017-07-21] MEDS: Insulin LISPRO 300 UNITS/3 ML VIAL SQ SCH ×3 (08:24→14:20)
[2017-07-21] MEDS: *HR* Metformin 500 MG TABLET PO SCH ×2 (08:28→16:56)
[2017-07-21] MEDS: Lisinopril 20 MG TABLET PO SCH (08:28)
[2017-07-21] MEDS: Acetaminophen 325 MG TABLET PO PRN (08:28)
--- NOTE | 2017-07-21 11:20 | General Surgery Progress Note ---
Date of Encounter: 07/21/17 Time of Encounter: 11:10 Subjective Patient reports: feels better, pain is less, tolerating liquids well Narrative: General Surgery - POD #2 Patient feeling better; pain has diminished. Afebrile, 98.6; pulse 75, respirations 16, blood pressure 162/92. SPO2 on room air 95%. Lungs: Clear; no abdominal pain at inspiration Cardiac: Regular rate, no appreciable murmur Abdomen: Soft with active bowel sounds. Suprapubic midline incision intact and healing well. Follow-up persistent mac-incisional tenderness as expected. Patient passing flatus. Urine output approximately 2600 mL for calendar day 07/20/17 - affective postoperative diuresis; 500 mL so far today. Operative pathology pending Impression: Postoperative day #2; status post laparoscopic cholecystectomy, lysis of adhesions followed by open exploratory celiotomy with small bowel resection due to small bowel adherent to a previous mesh repair of a periumbilical hernia. Patient doing well. Plan: Advance diet Remove Dillon If patient tolerates regular diet and is able to void - anticipate discharge home later today Objective Vital Signs - Last 8 Hours Temp Pulse Resp BP Pulse Ox 07/21/17 10:37 98.6 F 75 16 162/92 95 07/21/17 07:52 98.5 F 74 15 159/98 97 07/21/17 04:02 98.7 F 71 15 130/71 96 Intake and Output 07/20/17 07/21/17 07/21/17 23:59 07:59 15:59 Intake Total 600 / 600 200 / 200 240 / 240 Output Total 0 / 0 500 / 500 Balance 600 / 600 -300 / -300 240 / 240 Intake: Oral 600 / 600 200 / 200 240 / 240 Output: Urine 0 / 0 Catheter 0 / 0 500 / 500 Other: Meal Dinner Breakfast Percent of Meal Consumed 60% 100% Weight 107.7 kg Blood Glucose* 135 243 Patient Weight 07/21/17 23:59 Weight 107.7 kg - Labs 07/20/17 06:10 07/20/17 06:10 - VTE Documentation of Mechanical Device: Intermittent pneumatic compression device Consult Discharge Plan - Plan Referrals: Davion Betancur MD [Non-Partnered Physician] -
[2017-07-21 14:38] VITALS: BP 142/89
--- NOTE | 2017-07-21 18:08 | General Surgery Progress Note ---
Date of Encounter: 07/21/17 Time of Encounter: 18:02 Subjective Narrative: Progress Note / Discharge summary Patient feeling well, voicing no complaints. Tolerating diet; abd pain controlled with oral narcotic analgesics. Patient is afebrile, 98.6; heart rate 75-96, respirations 16 and unlabored, blood pressure 142/89. Lungs: Clear Abdomen: Soft, nontender with active bowel sounds. Urine output: Dillon removed; patient able to void, no urinary complaints. Impression: Postoperative day 2, status post laparoscopic cholecystectomy, lysis of adhesions followed by open exploratory celiotomy and small bowel resection. Acceptable postoperative status. History of ventral incisional hernia repair with mesh, 01/2011 - adherent small bowel to the mesh with high likelihood of small bowel obstruction secondary to these adhesions. Enterotomy resulted during lysis of these adhesions requiring open repair and stapled entero-enterotomy Hypertension - likely at baseline Hypercholesterolemia Diabetes Plan: Discharge home Outpatient follow-up, 07/27/17. Objective Vital Signs - Last 8 Hours Temp Pulse Resp BP Pulse Ox 07/21/17 14:24 98.6 F 96 16 142/89 96 07/21/17 10:37 98.6 F 75 16 162/92 95 Intake and Output 07/21/17 07/21/17 07/21/17 07:59 15:59 23:59 Intake Total 200 / 200 600 / 600 Output Total 500 / 500 0 / 0 200 / 200 Balance -300 / -300 600 / 600 -200 / -200 Intake: Oral 200 / 200 600 / 600 Output: Urine 0 / 0 200 / 200 Catheter 500 / 500 Other: Meal Lunch Percent of Meal Consumed 75% Weight 107.7 kg Blood Glucose* 243 131 163 Patient Weight 07/21/17 23:59 Weight 107.7 kg - Labs 07/20/17 06:10 07/20/17 06:10 - VTE Documentation of Mechanical Device: Intermittent pneumatic compression device Consult Discharge Plan - Plan Referrals: Davion Betancur MD [Non-Partnered Physician] -
--- NOTE | 2017-07-21 18:17 | Discharge Summary ---
Outpatient Proc Discharge Plan - Plan Additional Instructions: Diabetic diet Patient may be active as tolerated; lifting limited to less than 20 pounds Patient may shower, wash incisions with soap and water Outpatient follow-up in the office, 07/30/17. Patient to call office Monday a.m. to make this appointment Tylenol, ibuprofen, Motrin, Advil, etc. as needed for pain Percocet 5/325, #16, one every 6 hours as needed for pain not relieved by over- the-counter medications. Patient to resume home meds Prescriptions: OxyCODONE/APAP 5/325 [Percocet 5/325 MG] 1 each PO Q6H PRN 4 Days #16 tablet PRN Reason: Pain Home Medications: Linagliptin [Tradjenta] 5 mg PO DAILY 06/28/17 [History] Lisinopril [Zestril] 10 mg PO DAILY 06/28/17 [History] Metformin HCl [Glucophage] 1,000 mg PO BID 06/28/17 [History] Pravastatin Sodium [Pravachol] 40 mg PO HS 06/28/17 [History] Acetaminophen [Tylenol] 650 mg PO Q6HR PRN tablet 07/21/17 [Rx] OxyCODONE/APAP 5/325 [Percocet 5/325 MG] 1 each PO Q6H PRN 4 Days #16 tablet 09/30 [Rx]
== END 2017-07-21 18:34 | disposition home or self-care (01) | DRG 416 ==
LOC: SAMDAY 06:58 → 3ANU 13:18
PROVIDERS: ADMIT Surgery; ATTEND Surgery